=== PATIENT | male | born 1980 | race Caucasian/White ===

== ENCOUNTER 2020-08-19 13:51 | Emergency (ER) | payer OTHER ==
--- NOTE | 2020-08-19 14:58 | EDM.PDOC ---
ED HPI GENERAL MEDICAL PROBLEM - General Chief Complaint: Genitourinary Problem Stated Complaint: SWOLLEN TESTICLE RT Time Seen by Provider: 08/19/20 14:28 Source of Information: Reports: Patient History Limitations: Reports: No Limitations - History of Present Illness INITIAL COMMENTS - FREE TEXT/NARRATIVE: HISTORY AND PHYSICAL: History of present illness: She is a 39-year-old male presents to the ED today with concern of right testicle pain and swelling since 08/16/20. Patient states that his pain is generalized, constant with episodes of sharp 10/10 pain that shoots up his right inguinal canal. He denies any pain with intercourse, painful ejaculation, painful erections, urethral discharge or any noted blood in urine or semen. Patient also states he has been in a monogamous relationship for 18 years. Denies any trauma or injury. Patient denies fever, chills, chest pain, shortness of breath, or cough. Denies headache, neck stiff ness, change in vision, syncope, or near syncope. Denies nausea, vomiting, abdominal pain, diarrhea, constipation, or dysuria. Has not noted any blood in urine or stool. Patient has been eating and drinking appropriately. Review of systems: As per history of present illness and below otherwise all systems reviewed and negative. Past medical history: As per history of present illness and as reviewed below otherwise noncontributory. Surgical history: As per history of present illness and as reviewed below otherwise noncontributory. Social history: See social history for further information Family history: As per history of present illness and as reviewed below otherwise noncontributory. Physical exam: General: Patient is alert, oriented, and in no acute distress. Patient sitting comfortably on exam table. Vitals stable and reviewed by me. HEENT: Atraumatic, normocephalic, pupils equal and reactive bilaterally, negative for conjunctival pallor or scleral icterus, mucous membranes moist, TMs normal bilaterally, throat clear, neck supple, nontender, trachea midline. No drooling or trismus noted. No meningeal signs. No hot potato voice noted. Lungs: Clear to auscultation, breath sounds equal bilaterally, chest nontender. Heart: S1S2, regular rate and rhythm without overt murmur Abdomen: Soft, nondistended, nontender. Negative for masses or hepatosplenomegaly. Negative for costovertebral tenderness. Pelvis: Stable nontender. Genitourinary: [employer] Manager at bedside AUGUST Godinez. The right testicle is tender to palpation, erythematous, and edematous in comparison to the left. Not high riding. No hernias noted bilaterally. No gross nodules or masses appreciated. Rectal: Deferred. Skin: Intact, warm, dry. No lesions or rashes noted. Extremities: Atraumatic, negative for cords or calf pain. Neurovascular unremarkable. Neuro: Awake, alert, oriented. Cranial nerves II through XII unremarkable. Cerebellum unremarkable. Motor and sensory unremarkable throughout. Exam nonfocal. Notes: Scrotum and contents ultrasound shows that the right testicle has a slight prominence with compared to the left. Normal color flow is demonstrated within the right testicle. No evidence for testicular torsion but given size asymmetry intermittent torsion cannot be excluded. I did call and speak to the urologist Dr Jeong medical collections specialist who has come in to personally see and evaluate patient. See his official consult note for further treatment and disposition. Per Dr. Calvin, will place patient on Keflex and Indocin for epididymitis. Patient has recently ran out of his lisinopril 10 mg daily for blood pressure medication. Will refill this until he is able to get seen by his primary care provider for refills. Voices understanding and is agreeable to plan of care. Denies any further questions or concerns at this time. Diagnostics: Scrotum and contents US, UA, [employer]: Nonme Prescription: Keflex, Indocin, Lisinopril Impression: Acute epididymitis Hypertension Plan: 1. Take medication as prescribed. You can use Tylenol as directed for pain and discomfort. 2. Follow-up with your primary care provider and Dr. Torres as discussed. Return to the ED as needed and as discussed. Definitive disposition and diagnosis as appropriate pending reevaluation and review of above. Right Scrotum Pain Score (Numeric/FACES): 6 - Related Data Allergies Allergy/AdvReac Type Severity Reaction Status Date / Time No Known Allergies Allergy Verified 08/19/20 14:39 Home Meds: Home Meds Indomethacin 50 mg PO TID 7 Days #21 capsule 08/19/20 [Rx] cephALEXin [Keflex] 500 mg PO QID 10 Days #40 cap 08/19/20 [Rx] lisinopriL [Lisinopril] 10 mg PO DAILY 08/19/20 [History] lisinopriL [Lisinopril] 10 mg PO DAILY #14 tablet 08/19/20 [Rx] Past Medical History - Past Health History Medical/Surgical History: Denies Medical/Surgical History Cardiovascular History: Reports: Hypertension - Infectious Disease History Infectious Disease History: Reports: Chicken Pox Social & Family History - Tobacco Use Tobacco Use Status *Q: Never Tobacco User - Caffeine Use Caffeine Use: Reports: Coffee - Recreational Drug Use Recreational Drug Use: No ED ROS GENERAL - Review of Systems Review Of Systems: Comprehensive ROS is negative, except as noted in HPI. ED EXAM, GENERAL - Physical Exam Exam: See Below (see dictation) Course - Vital Signs Last Recorded V/S: Last Vital Signs Temp 97 F 08/19/20 14:39 Pulse 91 08/19/20 14:39 Resp 18 08/19/20 14:39 BP 184/129 H 08/19/20 14:39 Pulse Ox 99 08/19/20 14:39 - Orders/Labs/Meds Orders: Active Orders 24 hr Category Date Time Status Notify Provider Consults [RC] ASDIRECTED Care 08/19/20 16:01 Active Consult to Physician [CONS] Stat Cons 08/19/20 16:00 Active Scrotum and Contents [US] Stat Exams 08/19/20 14:46 Taken CHLAMYDIA AND GONORRHEA BY TMA Stat Lab 08/19/20 14:40 Received Labs: Laboratory Tests 08/19/20 Range/Units 14:40 Urine Color YELLOW Urine Appearance CLEAR Urine pH 6.0 (5.0-8.0) Ur Specific [place] 1.020 (1.001-1.035) Urine Protein TRACE H (NEGATIVE) mg/dL Urine Glucose (UA) NEGATIVE (NEGATIVE) mg/dL Urine Ketones NEGATIVE (NEGATIVE) mg/dL Urine Occult Blood NEGATIVE (NEGATIVE) Urine Nitrite NEGATIVE (NEGATIVE) Urine Bilirubin NEGATIVE (NEGATIVE) Urine Urobilinogen 0.2 (<2.0) EU/dL Ur Leukocyte Esterase NEGATIVE (NEGATIVE) Urine RBC 0-2 (0-2/HPF) Urine WBC 0-1 (0-5/HPF) Ur Epithelial Cells RARE (NONE-FEW) Urine Bacteria RARE (NEGATIVE) Departure - Departure Time of Disposition: 16:55 Disposition: Home, Self-Care 01 Clinical Impression: Acute epididymitis - Discharge Information Prescriptions: Indomethacin 50 mg PO TID 7 Days #21 capsule cephALEXin [Keflex] 500 mg PO QID 10 Days #40 cap lisinopriL [Lisinopril] 10 mg PO DAILY #14 tablet Referrals: PCP,None [Primary Care Provider] - Forms: ED Department Discharge Additional Instructions: The following information is given to patients seen in the emergency department who are being discharged to home. This information is to outline your options for follow-up care. We provide all patients seen in our emergency department with a follow-up referral. The need for follow-up, as well as the timing and circumstances, are variable depending upon the specifics of your emergency department visit. If you don't have a primary care physician on staff, we will provide you with a referral. We always advise you to contact your personal physician following an emergency department visit to inform them of the circumstance of the visit and for follow-up with them and/or the need for any referrals to a consulting specialist. The emergency department will also refer you to a specialist when appropriate. This referral assures that you have the opportunity for follow-up care with a specialist. All of these measure are taken in an effort to provide you with optimal care, which includes your follow-up. Under all circumstances we always encourage you to contact your private physician who remains a resource for coordinating your care. When calling for follow-up care, please make the office aware that this follow-up is from your recent emergency room visit. If for any reason you are refused follow-up, please contact the [facility] Emergency Department at and asked to speak to the emergency department charge nurse. [facility] [address] [place] [id number] [facility] [address] [place] [id number] [facility] - Urology, Dr. Torres [address] [place] [address] 1. Take medication as prescribed. You can use Tylenol as directed for pain and discomfort. 2. Follow-up with your primary care provider and Dr. Torres as discussed. Return to the ED as needed and as discussed. Sepsis Event Note (ED) - Evaluation Sepsis Screening Result: No Definite Risk - Focused Exam Vital Signs: Vital Signs Temp Pulse Resp BP Pulse Ox 08/19/20 14:39 97 F 91 18 184/129 H 99 - My Orders Last 24 Hours: My Active Orders 08/19/20 14:40 CHLAMYDIA AND GONORRHEA BY TMA Stat 08/19/20 14:46 Scrotum and Contents [US] Stat 08/19/20 16:00 Consult to Physician [CONS] Stat 08/19/20 16:01 Notify Provider Consults [RC] ASDIRECTED - Assessment/Plan Last 24 Hours: My Active Orders 08/19/20 14:40 CHLAMYDIA AND GONORRHEA BY TMA Stat 08/19/20 14:46 Scrotum and Contents [US] Stat 08/19/20 16:00 Consult to Physician [CONS] Stat 08/19/20 16:01 Notify Provider Consults [RC] ASDIRECTED
--- NOTE | 2020-08-19 15:46 | US ---
HISTORY: 39-year-old with right testicle pain. TECHNIQUE: Duplex/color Doppler ultrasound evaluation of the scrotum was performed. COMPARISON: None available. FINDINGS: The right testis measures 4.3 x 2.4 x 4.1 cm, giving a calculated volume of 22 ml. The right testis and epididymis are normal in size, configuration, and echogenicity. There is no evidence of intra- or extratesticular mass. The left testis measures 2.1 x 2 x 3.3 cm, giving a calculated volume of the 10.4 ml. The left testis and epididymis are normal in size, configuration, and echogenicity. There is no evidence of intra- or extratesticular mass. Color Doppler flow is demonstrated within both testes and epididymides. Normal-appearing arterial and venous waveforms are observed bilaterally. No varicoceles are visualized. Bilateral hydroceles are present, right greater than left. IMPRESSION: 1. Slight prominence of the right testicle with compared to the left. Normal color flow is demonstrated within the right testicle. No evidence for testicular torsion but given size asymmetry intermittent torsion cannot be excluded, especially if patient has had resolution/improvement of symptoms by the time this examination was performed. 2. Bilateral hydroceles, right greater than left. Dictated by Surendra Ramirez MD @ Aug 19 2020 3:39PM Signed by Dr. Surendra Ramirez @ Aug 19 2020 3:44PM
--- NOTE | 2020-08-20 09:35 | CONS ---
DATE OF CONSULTATION: 08/19/2020 DATE OF : 1980 PRIMARY CARE PHYSICIAN: None PCP HISTORY OF PRESENT ILLNESS: A 39-year-old who was seen in the emergency room with complaints of intermittent right testicular pain and swelling for the last three days. No history of trauma. He had a vasectomy in the past. No history of urinary stones. He had a UA that was negative. PHYSICAL EXAMINATION: GENERAL APPEARANCE: Normal. ABDOMEN: Negative. GENITOURINARY: External genitalia, testicles are normal on both sides. Epididymis on the right side is tender, indurated, and slightly larger than normal. Consistent with acute epididymitis. DIAGNOSIS: Acute epididymitis. PLAN: He was given a prescription for Keflex 500 four times a day for 10 days, Indocin 50 mg p.o. t.i.d. for one week. I will see him in followup in 2 weeks. ALCIDES / DAKOTA /[id number]
--- NOTE | 2020-08-20 10:11 | US ---
EXAM DATE: 08/19/20 PATIENT'S AGE: 39 Patient: ANNA GAMBLE [facility] . Site : 1980 Study: US-Testicle -08/19/2020 3:25:40 PM Ordering Physician: ED Provider Temporary Final Report: HISTORY: 39-year-old with right testicle pain. TECHNIQUE: Duplex/color Doppler ultrasound evaluation of the scrotum was performed. COMPARISON: None available. FINDINGS: The right testis measures 4.3 x 2.4 x 4.1 cm, giving a calculated volume of 22 ml. The right testis and epididymis are normal in size, configuration, and echogenicity. There is no evidence of intra- or extratesticular mass. The left testis measures 2.1 x 2 x 3.3 cm, giving a calculated volume of the 10.4 ml. The left testis and epididymis are normal in size, configuration, and echogenicity. There is no evidence of intra- or extratesticular mass. Color Doppler flow is demonstrated within both testes and epididymides. Normal- appearing arterial and venous waveforms are observed bilaterally. No varicoceles are visualized. Bilateral hydroceles are present, right greater than left. IMPRESSION: 1. Slight prominence of the right testicle with compared to the left. Normal color flow is demonstrated within the right testicle. No evidence for testicular torsion but given size asymmetry intermittent torsion cannot be excluded, especially if patient has had resolution/improvement of symptoms by the time this examination was performed. 2. Bilateral hydroceles, right greater than left. Dictated by Surendra Ramirez MD @ Aug 19 2020 3:39PM Signed by: Surendra Ramirez MD @08/19/2020 3:44:36 PM (Electronic Signature) Report Signed by Proxy. YANG
[2020-08-21 12:06] LABS: C.TRACHOMATIS BY TMA Negative (Negative); N.GONORRHOEAE BY TMA Negative (Negative)
== END 2020-08-19 17:08 | disposition home or self-care (01) ==
LOC: MW.ED 13:51
DX: N45.1 Epididymitis (principal); I10 Essential (primary) hypertension; Z79.899 Other long term (current) drug therapy
CPT/HCPCS: 76870; 76870-26; 81001; 87491; 87591; 93976; 93976-26; 99283; 99284-25

== ENCOUNTER 2020-12-19 11:00 | Emergency (ER) | payer OTHER ==
--- NOTE | 2020-12-19 11:12 | EDM.PDOC ---
ED HPI GENERAL MEDICAL PROBLEM - General Chief Complaint: Cardiovascular Problem Stated Complaint: CHEST PAINS Time Seen by Provider: 12/19/20 11:09 - History of Present Illness INITIAL COMMENTS - FREE TEXT/NARRATIVE: History of present illness: [] Review of systems: As per history of present illness and below otherwise all systems reviewed and negative. Past medical history: As per history of present illness and as reviewed below otherwise noncontributory. The patient has chest pain with the raise. It is a dull pain in the right side of his chest. He has had some sharp exacerbation with movement and with breathing. Taking deep breath can cause sharp exacerbation but not consistently. There are no other associated symptoms. The patient has felt rundown and tired more than usual over the last few days and is working extremely hard and 13 hours a day. The patient stopped his blood pressure medicine on his own 6 months ago. He was taking lisinopril 10 mg daily. He restarted 2 days ago because he began to f eel fatigued. Surgical history: As per history of present illness and as reviewed below otherwise noncontributory. Social history: No reported history of drug or alcohol abuse. Family history: As per history of present illness and as reviewed below otherwise noncontributory. Physical exam: Constitutional - well developed, well-nourished and in no acute distress HEENT - normocephalic, no evidence of trauma - external nose and mouth normal - no mass in neck and no JVD - mucosae moist EYES - full EOM, PERRL, no icterus - no evidence of inflammation, injection, or drainage Respiratory - no respiratory distress, equal bilateral expansion, lungs clear to auscultation and no abnormal lung sounds Cardiovascular - Regular Rhythm with S1 and S2 appreciated and no murmur, gallop or rub. GI - abdomen soft without distension or organomegaly - normal bowel sounds - no guard or rebound Musculoskeletal no gross deformity of long bones or joints - no tenderness, swelling or edema Neurologic - Alert and oriented times four - CN II-XII grossly intact - motor sensory and coordination symmetrically normal Psychiatric - appropriate mood and affect with normal thought content Hematologic - No petechiae or purpura - mucosa appropriate color and sclera not pale - normal nail bed color and refill Integument - no rash or evidence of trauma - normal turgor Diagnostics: [] Therapeutics: [] Impression: [] Plan: [] Definitive disposition and diagnosis as appropriate pending reevaluation and review of above. Chest Pain Score (Numeric/FACES): 5 - Related Data Allergies Allergy/AdvReac Type Severity Reaction Status Date / Time No Known Allergies Allergy Verified 12/19/20 11:08 Home Meds: Home Meds lisinopriL [Lisinopril] 10 mg PO DAILY #14 tablet 08/19/20 [Rx] Past Medical History - Past Health History Medical/Surgical History: Denies Medical/Surgical History Cardiovascular History: Reports: Hypertension - Infectious Disease History Infectious Disease History: Reports: Chicken Pox Social & Family History - Caffeine Use Caffeine Use: Reports: Coffee ED ROS GENERAL - Review of Systems Review Of Systems: Comprehensive ROS is negative, except as noted in HPI. ED EXAM, GENERAL - Physical Exam Exam: See Below Free Text/Narrative:: My physical exam is in the HPI #1 Interpretation EKG Interpretation Comments: EKG done at 11:08 AM sinus rhythm with a heart rate seventy-six [place] interval one twenty-six QT duration four twenty-six Baxter XX one early transition to R wave in the precordium normal ST and T. No prior for comparison. Impression essentially normal EKG. Course - Vital Signs Last Recorded V/S: Last Vital Signs Temp 36.3 C 12/19/20 11:09 Pulse 76 12/19/20 11:09 Resp 16 12/19/20 11:09 BP 167/112 H 12/19/20 11:09 Pulse Ox 99 12/19/20 11:09 - Orders/Labs/Meds Orders: Active Orders 24 hr Category Date Time Status EKG Documentation Completion [RC] AM Care 12/19/20 11:22 Active Sodium Chloride 0.9% [Saline Flush] Med 12/19/20 11:22 Active 10 ml FLUSH ASDIRECTED PRN Sodium Chloride 0.9% [Saline Flush] Med 12/19/20 11:22 Active 2.5 ml FLUSH ASDIRECTED PRN Saline Lock Insert [OM.PC] Stat Oth 12/19/20 11:22 Ordered Medication Orders Sodium Chloride (Sodium Chloride 0.9% 10 Ml Syringe) 10 ml FLUSH ASDIRECTED PRN PRN Reason: Keep Vein Open Last Admin: 12/19/20 11:28 Dose: 10 ml Documented by: SORAIDA Sodium Chloride (Sodium Chloride 0.9% 2.5 Ml Syringe) 2.5 ml FLUSH ASDIRECTED PRN PRN Reason: Keep Vein Open Last Admin: 12/19/20 11:28 Dose: 2.5 ml Documented by: SORAIDA Labs: Laboratory Tests 12/19/20 12/19/20 Range/Units 11:10 11:10 WBC 7.07 (4.0-11.0) K/uL RBC 5.01 (4.50-5.90) M/uL Hgb 15.9 (13.0-17.0) g/dL Hct 46.3 (38.0-50.0) % MCV 92.4 (80.0-98.0) fL MCH 31.7 (27.0-32.0) pg MCHC 34.3 (31.0-37.0) g/dL RDW Std Deviation 43.2 (28.0-62.0) fl RDW Coeff of Sandra 13 (11.0-15.0) % Plt Count 153 (150-400) K/uL MPV 12.30 H (7.40-12.00) fL Neut % (Auto) 67.6 (48.0-80.0) % Lymph % (Auto) 20.9 (16.0-40.0) % Rankin % (Auto) 7.9 (0.0-15.0) % Eos % (Auto) 3.5 (0.0-7.0) % Baso % (Auto) 0.1 (0.0-1.5) % Neut # (Auto) 4.8 (1.4-5.7) K/uL Lymph # (Auto) 1.5 (0.6-2.4) K/uL Rankin # (Auto) 0.6 (0.0-0.8) K/uL Eos # (Auto) 0.3 (0.0-0.7) K/uL Baso # (Auto) 0.0 (0.0-0.1) K/uL Nucleated RBC % 0.0 /100WBC Nucleated RBCs # 0 K/uL Sodium 135 L (136-148) mmol/L Potassium 4.6 (3.5-5.1) mmol/L Chloride 103 (98-107) mmol/L Carbon Dioxide 26.2 (21.0-32.0) mmol/L BUN 14 (7.0-18.0) mg/dL Creatinine 1.0 (0.8-1.3) mg/dL Est Cr Clr Drug Dosing TNP Estimated GFR (MDRD) > 60.0 ml/min Glucose 91 (74-106) mg/dL Calcium 8.2 L (8.5-10.1) mg/dL Total Bilirubin 0.9 (0.2-1.0) mg/dL AST 27 (15-37) IU/L ALT 49 (14-63) IU/L Alkaline Phosphatase 78 (46-116) U/L Troponin I < 0.050 (0.000-0.056) ng/mL Total Protein 7.0 (6.4-8.2) g/dL Albumin 3.7 (3.4-5.0) g/dL Globulin 3.3 (2.6-4.0) g/dL Albumin/Globulin Ratio 1.1 (0.9-1.6) Meds: Medications Generic Name Dose Route Start Last Admin Trade Name Freq PRN Reason Stop Dose Admin Sodium Chloride 10 ml 12/19/20 11:22 12/19/20 11:28 Sodium Chloride 0.9% 10 Ml Syringe FLUSH 10 ml ASDIRECTED PRN Administration Keep Vein Open Sodium Chloride 2.5 ml 12/19/20 11:22 12/19/20 11:28 Sodium Chloride 0.9% 2.5 Ml Syringe FLUSH 2.5 ml ASDIRECTED PRN Administration Keep Vein Open Discontinued Medications Generic Name Dose Route Start Last Admin Trade Name Freq PRN Reason Stop Dose Admin Aspirin 324 mg 12/19/20 11:22 12/19/20 11:28 Aspirin 81 Mg Tab.Chew PO 12/19/20 11:23 324 mg ONETIME ONE Administration Departure - Departure Time of Disposition: 12:04 Disposition: Home, Self-Care 01 Condition: Good Clinical Impression: Chest wall pain Instructions: Chest Wall Pain, [id number] Forms: ED Department Discharge Additional Instructions: Continue blood pressure medicine and have your doctors continue to check it. [facility] - Primary Care [address] [place] [address] [place] [address] The following information is given to patients seen in the emergency department who are being discharged to home. This information is to outline your options for follow-up care. We provide all patients seen in our emergency department with a follow-up referral. The need for follow-up, as well as the timing and circumstances, are variable depending upon the specifics of your emergency department visit. If you don't have a primary care physician on staff, we will provide you with a referral. We always advise you to contact your personal physician following an emergency department visit to inform them of the circumstance of the visit and for follow-up with them and/or the need for any referrals to a consulting specialist. The emergency department will also refer you to a specialist when appropriate. This referral assures that you have the opportunity for follow-up care with a specialist. All of these measure are taken in an effort to provide you with optimal care, which includes your follow-up. Under all circumstances we always encourage you to contact your private connor rubio who remains a resource for coordinating your care. When calling for follow-up care, please make the office aware that this follow-up is from your recent emergency room visit. If for any reason you are refused follow-up, please contact the [facility] Emergency Department at and asked to speak to the emergency department charge nurse. Sepsis Event Note (ED) - Focused Exam Vital Signs: Vital Signs Temp Pulse Resp BP Pulse Ox 12/19/20 11:09 36.3 C 76 16 167/112 H 99 - My Orders Last 24 Hours: My Active Orders 12/19/20 11:22 EKG Documentation Completion [RC] AM Sodium Chloride 0.9% [Saline Flush] 10 ml FLUSH ASDIRECTED PRN Sodium Chloride 0.9% [Saline Flush] 2.5 ml FLUSH ASDIRECTED PRN Saline Lock Insert [OM.PC] Stat - Assessment/Plan Last 24 Hours: My Active Orders 12/19/20 11:22 EKG Documentation Completion [RC] AM Sodium Chloride 0.9% [Saline Flush] 10 ml FLUSH ASDIRECTED PRN Sodium Chloride 0.9% [Saline Flush] 2.5 ml FLUSH ASDIRECTED PRN Saline Lock Insert [OM.PC] Stat
[2020-12-19] MEDS ORDERED: Aspirin 81 MG Tab.Chew PO ONE (11:22)
[2020-12-19] MEDS ORDERED: Sodium Chloride 0.9% 2.5 ML Syringe FLUSH PRN (11:22)
[2020-12-19] MEDS ORDERED: Sodium Chloride 0.9% 10 ML Syringe FLUSH PRN (11:22)
[2020-12-19 11:41] LABS: BLOOD UREA NITROGEN,BUN 14 mg/dL (7.0-18.0); CARBON DIOXIDE,CO2 26.2 mmol/L (21.0-32.0); CHLORIDE,CL 103 mmol/L (98-107); GLUCOSE RANDOM 91 mg/dL (74-106); POTASSIUM,K 4.6 mmol/L (3.5-5.1); SODIUM,NA 135 mmol/L (136-148)
--- NOTE | 2020-12-19 11:52 | CR ---
Indication: Chest pain Comparison: None available. Technique: Single AP view chest Findings: There is mild hyperinflation. There is no focal consolidation, effusion, or pneumothorax. The cardiomediastinal silhouette is within normal limits. The bony thorax is grossly intact. Impression: Mild hyperinflation without evidence of dense consolidation or acute cardiopulmonary abnormality. Dictated by Nato Mcarthur MD @ 12/19/2020 11:49:[address] Nato Mcarthur @ Dec 19 2020 11:49AM
== END 2020-12-19 12:13 | disposition home or self-care (01) ==
LOC: MW.ED 11:00
DX: R07.89 Other chest pain (principal); I10 Essential (primary) hypertension; Z79.899 Other long term (current) drug therapy
CPT/HCPCS: 36415; 71045; 80053; 84484; 85025; 93005; 99284; A9270

== ENCOUNTER 2021-12-15 09:11 | Emergency (ER) | payer OTHER ==
[2021-12-15] MEDS ORDERED: Dexamethasone 10 MG/ML SDV IM ONE (09:46)
== END 2021-12-15 10:08 | disposition home or self-care (01) ==
LOC: MW.ED 09:11
DX: S39.012A Strain of muscle, fascia and tendon of lower back, initial encounter (principal); I10 Essential (primary) hypertension; Z79.899 Other long term (current) drug therapy; X50.9XXA Other and unspecified overexertion or strenuous movements or postures, initial encounter
CPT/HCPCS: 96372; 99283; J1100